=== PATIENT | female | born 1990 | race Caucasian/White ===

== ENCOUNTER 2017-02-12 18:22 | Emergency (ER) | payer OTHER ==
[~2017-02-12] VITALS: Ht 152.4 cm; Wt 79.7 kg
[~2017-02-12 18:22] MED LIST: NOHOMEMEDS
[2017-02-12 18:39] VITALS: BP 132/82
[2017-02-12 19:13] LABS: ADD MIUA? YES; BILIRUBIN NEGATIVE; BLOOD NEGATIVE; COLOR YELLOW ((YELLOW)); GLUCOSE (STRIP) NEGATIVE; KETONES NEGATIVE; LEUKOCYTES SMALL; NITRITE POSITIVE; PROTEIN (STRIP) 30; SPECIFIC GRAVITY 1.021 (1.000-1.030); UROBILINOGEN 0.2 MG/DL (0.2-1.0)
[2017-02-12 19:17] LABS: HEMATOCRIT 37.8 % (36.0-46.0); MCHC 34.1 G/DL (30.0-36.0); MCV 84.9 FL (83-99); MEAN PLAT.VOLUME 10.4 uM^3 (9.5-12.4); PLATELET COUNT 312 K/uL (156-360); RBC DIS.WIDTH-CV 13.5 % (11.8-14.6); RED BLOOD COUNT 4.45 M/uL (3.80-5.20); WHITE BLOOD COUNT 13.8 K/uL (4.1-10.2)
[2017-02-12 19:33] LABS: CHLORIDE 102 mEq/L (99-109); POTASSIUM 3.3 mEq/L (3.7-5.4); SODIUM 140 mEq/L (136-147)
[2017-02-12 19:35] LABS: GLUCOSE 92 mg/dL (70-99)
[2017-02-12 19:36] LABS: ANION GAP 14 MEQ/L (2-14)
[2017-02-12 19:37] LABS: TOTAL BILIRUBIN 0.3 mg/dL (0.0-1.0)
[2017-02-12 19:39] LABS: ALKALINE PHOSPHATASE 100 IU/L (3-129); GFR ESTIMATE (CALCULATED) > 59 mL/min/
[2017-02-12 19:40] LABS: UREA NITROGEN (BUN) 11 mg/dL (9-23)
[2017-02-12 19:42] LABS: LIPASE 26 U/L (1.0-51.0)
[2017-02-12 19:50] LABS: QUANTITATIVE HCG < 4.0 MIU/ML
[2017-02-12 20:14] LABS: BACTERIA 3+ /HPF; CASTS NONE SEEN /LPF; CRYSTALS NONE SEEN; EPITHELIAL CELLS 2+ /HPF; MUCUS TRACE /LPF; RED BLOOD CELLS 0-5 /HPF (0-5); UCUL ADDED? YES
[2017-02-13] MEDS ORDERED: METHADOSE10 MG/1 ML PO (14:25)
== END 2017-02-12 20:21 | disposition left against medical advice (07) ==
LOC: EME 18:22
DX: R10.10 Upper abdominal pain, unspecified (principal); R11.2 Nausea with vomiting, unspecified; Z53.21 Procedure and treatment not carried out due to patient leaving prior to being seen by health care provider
CPT/HCPCS: 80053; 81003; 83690; 84702; 85027; 87077; 87086; 87186

== ENCOUNTER 2017-02-13 08:46 | Inpatient (IN) | payer OTHER ==
[~2017-02-13] VITALS: Ht 152.4 cm; Wt 78.0 kg
[2017-02-13 09:23] LABS: EOSINOPHIL COUNT 0.2 K/uL (0-0.3); HEMATOCRIT 37.8 % (36.0-46.0); IMMATURE GRANULOCYTE (%) 0.4 % (0.0-0.7); INSTRUMENT ABS NEUTROPHIL CT 5.2 K/uL; LYMPHOCYTE COUNT 1.9 K/uL (1.0-2.8); MCH 28.6 PG (29.0-34.0); MCHC 33.9 G/DL (30.0-36.0); MCV 84.6 FL (83-99); MEAN PLAT.VOLUME 10.2 uM^3 (9.5-12.4); MONOCYTE (%) 8.2 % (3-12); MONOCYTE COUNT 0.7 K/uL (0-0.8); NEUTROPHIL COUNT 5.2 K/uL (1.8-6.4); PLATELET COUNT 288 K/uL (156-360); RBC DIS.WIDTH-CV 13.7 % (11.8-14.6); RBC DIS.WIDTH-SD 42.3 % (39-53); RED BLOOD COUNT 4.47 M/uL (3.80-5.20)
[2017-02-13 09:31] LABS: CHLORIDE 105 mEq/L (99-109); POTASSIUM 3.6 mEq/L (3.7-5.4); SODIUM 138 mEq/L (136-147)
[2017-02-13 09:33] LABS: GLUCOSE 86 mg/dL (70-99)
[2017-02-13 09:34] LABS: ANION GAP 11 MEQ/L (2-14)
[2017-02-13 09:37] LABS: GFR ESTIMATE (CALCULATED) > 59 mL/min/
[2017-02-13 09:38] LABS: UREA NITROGEN (BUN) 9 mg/dL (9-23)
[2017-02-13 09:40] LABS: ALKALINE PHOSPHATASE 222 IU/L (3-129); LIPASE 18 U/L (1.0-51.0); TOTAL BILIRUBIN 2.4 mg/dL (0.0-1.0)
[2017-02-13 09:46] LABS: QUANTITATIVE HCG < 4.0 MIU/ML
[2017-02-13 09:55] LABS: ADD MIUA? YES; BILIRUBIN NEGATIVE; BLOOD NEGATIVE; COLOR AMBER ((YELLOW)); GLUCOSE (STRIP) NEGATIVE; KETONES NEGATIVE; LEUKOCYTES TRACE; NITRITE POSITIVE; PROTEIN (STRIP) NEGATIVE; SPECIFIC GRAVITY 1.015 (1.000-1.030)
[2017-02-13 10:06] LABS: BACTERIA 1+ /HPF; CALCIUM OXALATE CRYSTALS 1+ /HPF; EPITHELIAL CELLS 1+ /HPF; MUCUS TRACE /LPF; RED BLOOD CELLS 0-5 /HPF (0-5); UCUL ADDED? YES
[2017-02-13 13:38] LABS: DIRECT BILIRUBIN 1.7 mg/dL (0.0-0.3)
[2017-02-13] MEDS ORDERED: METHADOSE10 MG/1 ML PO (14:25)
[2017-02-13 17:29] LABS: INTER. NORMALIZED RATIO 1.2; PROTHROMBIN TIME 12.7 SEC (10.2-12.9)
[2017-02-13 17:32] LABS: PTT 28.5 SEC (25-37)
[2017-02-13 18:02] VITALS: BP 113/56
[2017-02-13 18:13] VITALS: BP 113/56
[2017-02-13 19:57] VITALS: BP 117/71
[2017-02-13 23:14] VITALS: BP 127/55
[2017-02-14 04:15] VITALS: BP 124/68
[2017-02-14 06:35] LABS: HEMATOCRIT 35.3 % (36.0-46.0); MCH 29.5 PG (29.0-34.0); MCHC 33.7 G/DL (30.0-36.0); MCV 87.6 FL (83-99); MEAN PLAT.VOLUME 10.6 uM^3 (9.5-12.4); PLATELET COUNT 264 K/uL (156-360); RBC DIS.WIDTH-CV 14.2 % (11.8-14.6); RBC DIS.WIDTH-SD 45.2 % (39-53); RED BLOOD COUNT 4.03 M/uL (3.80-5.20); WHITE BLOOD COUNT 7.6 K/uL (4.1-10.2)
[2017-02-14 07:00] LABS: ALKALINE PHOSPHATASE 173 IU/L (3-129); ANION GAP 8 MEQ/L (2-14); CHLORIDE 109 MEQ/L (99-109); GFR ESTIMATE (CALCULATED) > 59 mL/min/; GLUCOSE 75 mg/dL (70-99); MAGNESIUM 1.7 mg/dl (1.3-2.7); SAMPLE HEMOLYSIS CHECK 0; SAMPLE ICTERIC CHECK 0; SAMPLE LIPEMIA CHECK 0; SODIUM 144 MEQ/L (136-147); UREA NITROGEN (BUN) 10 mg/dL (9-23)
[2017-02-14 07:14] VITALS: BP 116/64
[2017-02-14 11:41] VITALS: BP 110/63
[2017-02-14 17:46] VITALS: BP 136/72
[2017-02-14 23:46] VITALS: BP 114/60
[2017-02-15 04:25] VITALS: BP 130/72
[2017-02-15 04:35] VITALS: BP 108/67
[2017-02-15 06:36] LABS: HEMATOCRIT 35.5 % (36.0-46.0); MCH 28.2 PG (29.0-34.0); MCHC 32.4 G/DL (30.0-36.0); MEAN PLAT.VOLUME 10.2 uM^3 (9.5-12.4); PLATELET COUNT 265 K/uL (156-360); RBC DIS.WIDTH-SD 44.5 % (39-53); RED BLOOD COUNT 4.08 M/uL (3.80-5.20); WHITE BLOOD COUNT 6.6 K/uL (4.1-10.2)
[2017-02-15 06:59] LABS: ALKALINE PHOSPHATASE 149 IU/L (3-129); ANION GAP 8 MEQ/L (2-14); CHLORIDE 109 MEQ/L (99-109); GFR ESTIMATE (CALCULATED) > 59 mL/min/; GLUCOSE 93 mg/dL (70-99); POTASSIUM 3.9 MEQ/L (3.7-5.4); SAMPLE HEMOLYSIS CHECK 0; SAMPLE ICTERIC CHECK 0; SAMPLE LIPEMIA CHECK 0; SODIUM 143 MEQ/L (136-147); UREA NITROGEN (BUN) 7 mg/dL (9-23)
[2017-02-15 07:01] LABS: TOTAL BILIRUBIN 2.1 MG/DL (0.0-1.0)
[2017-02-15 08:22] VITALS: BP 122/63
== END 2017-02-15 11:00 | disposition left against medical advice (07) | DRG 445 ==
LOC: EME 08:46 → EDOF 15:54 → ENRESERV 16:00 → CANRESERV 16:00 → ENRESERV 16:06 → 3EAST 17:31
PROVIDERS: Hospitalist; Physician Assistant; Surgery
DX: K80.70 Calculus of gallbladder and bile duct without cholecystitis without obstruction (principal); N39.0 Urinary tract infection, site not specified; B96.20 Unspecified Escherichia coli [E. coli] as the cause of diseases classified elsewhere; R74.0 Nonspecific elevation of levels of transaminase and lactic acid dehydrogenase [LDH]; R94.5 Abnormal results of liver function studies; F17.290 Nicotine dependence, other tobacco product, uncomplicated; E66.9 Obesity, unspecified; Z68.33 Body mass index [BMI] 33.0-33.9, adult; Z90.710 Acquired absence of both cervix and uterus; Z80.1 Family history of malignant neoplasm of trachea, bronchus and lung
CPT/HCPCS: 74020; 74181; 76705; 80053; 81003; 82248; 83690; 83735; 84702; 85025; 85027; 85610; 85730; 87077; 87086; 87186; 90686; 99281; 99285; G0378; J1650; J1885; J2543; J7030; J7050; J7120

== ENCOUNTER 2017-02-17 08:52 | Inpatient (IN) | payer OTHER ==
[~2017-02-17] VITALS: Ht 152.4 cm; Wt 76.4 kg
[~2017-02-17 08:52] MED LIST changes: +METHADOSE10 MG/1 ML PO
[2017-02-17 09:17] LABS: HEMATOCRIT 40.8 % (36.0-46.0); MCH 28.5 PG (29.0-34.0); MCHC 32.8 G/DL (30.0-36.0); MCV 86.8 FL (83-99); MEAN PLAT.VOLUME 10.1 uM^3 (9.5-12.4); PLATELET COUNT 327 K/uL (156-360); RBC DIS.WIDTH-CV 13.8 % (11.8-14.6); RBC DIS.WIDTH-SD 43.8 % (39-53); WHITE BLOOD COUNT 8.3 K/uL (4.1-10.2)
[2017-02-17 09:24] LABS: CHLORIDE 107 mEq/L (99-109); POTASSIUM 3.5 mEq/L (3.7-5.4); SODIUM 144 mEq/L (136-147)
[2017-02-17 09:26] LABS: GLUCOSE 127 mg/dL (70-99)
[2017-02-17 09:28] LABS: ANION GAP 9 MEQ/L (2-14); TOTAL BILIRUBIN 3.9 mg/dL (0.0-1.0)
[2017-02-17 09:30] LABS: ALKALINE PHOSPHATASE 190 IU/L (3-129); GFR ESTIMATE (CALCULATED) > 59 mL/min/
[2017-02-17 09:31] LABS: UREA NITROGEN (BUN) 7 mg/dL (9-23)
[2017-02-17 09:48] LABS: QUANTITATIVE HCG < 4.0 MIU/ML
[2017-02-17 10:09] LABS: LIPASE 67 U/L (1.0-51.0)
[2017-02-17 13:42] LABS: ADD MIUA? YES; BILIRUBIN NEGATIVE; BLOOD LARGE; COLOR AMBER ((YELLOW)); GLUCOSE (STRIP) NEGATIVE; KETONES NEGATIVE; LEUKOCYTES TRACE; NITRITE NEGATIVE; PROTEIN (STRIP) 100; SPECIFIC GRAVITY 1.011 (1.000-1.030)
[2017-02-17 13:50] VITALS: BP 121/95
[2017-02-17 14:03] LABS: BACTERIA RARE /HPF; CASTS NONE SEEN /LPF; CRYSTALS NONE SEEN; EPITHELIAL CELLS RARE /HPF; MUCUS NONE SEEN /LPF; RED BLOOD CELLS TNTC /HPF (0-5); UCUL ADDED? YES; WHITE BLOOD CELLS 0-5 /HPF (0-5)
[2017-02-17 19:58] VITALS: BP 115/64
[2017-02-17 22:59] VITALS: BP 110/62
[2017-02-18 05:58] LABS: MCH 29.3 PG (29.0-34.0); MCHC 33.1 G/DL (30.0-36.0); MCV 88.4 FL (83-99); MEAN PLAT.VOLUME 10.6 uM^3 (9.5-12.4); PLATELET COUNT 280 K/uL (156-360); RBC DIS.WIDTH-CV 14.2 % (11.8-14.6); RED BLOOD COUNT 3.96 M/uL (3.80-5.20); WHITE BLOOD COUNT 6.7 K/uL (4.1-10.2)
[2017-02-18 06:25] LABS: ALKALINE PHOSPHATASE 156 IU/L (3-129); ANION GAP 7 MEQ/L (2-14); CHLORIDE 107 MEQ/L (99-109); GFR ESTIMATE (CALCULATED) > 59 mL/min/; POTASSIUM 3.6 MEQ/L (3.7-5.4); SAMPLE HEMOLYSIS CHECK 0; SAMPLE ICTERIC CHECK 0; SAMPLE LIPEMIA CHECK 0; SODIUM 142 MEQ/L (136-147); UREA NITROGEN (BUN) 6 mg/dL (9-23)
[2017-02-18 06:26] LABS: GLUCOSE 95 mg/dL (70-99)
[2017-02-18 07:28] VITALS: BP 146/73
[2017-02-18 23:37] VITALS: BP 145/67
[2017-02-19 05:58] LABS: EOSINOPHIL (%) 0.1 % (0-5); HEMATOCRIT 35.9 % (36.0-46.0); IMMATURE GRANULOCYTE (%) 0.6 % (0.0-0.7); IMMATURE GRANULOCYTE COUNT 0.1 K/uL; INSTRUMENT ABS NEUTROPHIL CT 8.7 K/uL; LYMPHOCYTE COUNT 1.3 K/uL (1.0-2.8); MCH 29.7 PG (29.0-34.0); MCHC 33.7 G/DL (30.0-36.0); MCV 88.2 FL (83-99); MEAN PLAT.VOLUME 10.8 uM^3 (9.5-12.4); MONOCYTE (%) 4.8 % (3-12); MONOCYTE COUNT 0.5 K/uL (0-0.8); NEUTROPHIL (%) 82.1 % (45-76); NEUTROPHIL COUNT 8.7 K/uL (1.8-6.4); PLATELET COUNT 292 K/uL (156-360); RBC DIS.WIDTH-CV 13.9 % (11.8-14.6); RBC DIS.WIDTH-SD 44.9 % (39-53); RED BLOOD COUNT 4.07 M/uL (3.80-5.20); WHITE BLOOD COUNT 10.5 K/uL (4.1-10.2)
[2017-02-19 06:39] LABS: ALKALINE PHOSPHATASE 150 IU/L (3-129); ANION GAP 9 MEQ/L (2-14); CHLORIDE 107 MEQ/L (99-109); DIRECT BILIRUBIN 1.3 mg/dL (0.0-0.3); GFR ESTIMATE (CALCULATED) > 59 mL/min/; GLUCOSE 127 mg/dL (70-99); LIPASE 1489 U/L (1.0-51.0); SAMPLE HEMOLYSIS CHECK 0; SAMPLE ICTERIC CHECK 0; SAMPLE LIPEMIA CHECK 0; SODIUM 143 MEQ/L (136-147); TOTAL BILIRUBIN 2.4 MG/DL (0.0-1.0); UREA NITROGEN (BUN) 10 mg/dL (9-23)
[2017-02-19 06:42] LABS: AMYLASE 421 IU/L (1-118); POTASSIUM 4.5 MEQ/L (3.7-5.4)
[2017-02-19 07:40] VITALS: BP 122/76
[2017-02-19 15:47] VITALS: BP 104/63
[2017-02-20 00:39] VITALS: BP 139/63
[2017-02-20 06:59] LABS: BASOPHIL COUNT 0.1 K/uL (0-0.1); EOSINOPHIL (%) 1.7 % (0-5); EOSINOPHIL COUNT 0.2 K/uL (0-0.3); HEMATOCRIT 33.3 % (36.0-46.0); IMMATURE GRANULOCYTE (%) 0.2 % (0.0-0.7); INSTRUMENT ABS NEUTROPHIL CT 7.1 K/uL; LYMPHOCYTE COUNT 3.8 K/uL (1.0-2.8); MCH 29.5 PG (29.0-34.0); MCHC 32.4 G/DL (30.0-36.0); MEAN PLAT.VOLUME 11.2 uM^3 (9.5-12.4); MONOCYTE (%) 6.4 % (3-12); MONOCYTE COUNT 0.8 K/uL (0-0.8); NEUTROPHIL (%) 59.4 % (45-76); NEUTROPHIL COUNT 7.1 K/uL (1.8-6.4); PLATELET COUNT 280 K/uL (156-360); RBC DIS.WIDTH-CV 14.6 % (11.8-14.6); RBC DIS.WIDTH-SD 49.1 % (39-53); RED BLOOD COUNT 3.66 M/uL (3.80-5.20); WHITE BLOOD COUNT 11.9 K/uL (4.1-10.2)
[2017-02-20 07:29] LABS: ALKALINE PHOSPHATASE 131 IU/L (3-129); ANION GAP 8 MEQ/L (2-14); CHLORIDE 109 MEQ/L (99-109); GFR ESTIMATE (CALCULATED) > 59 mL/min/; GLUCOSE 101 mg/dL (70-99); POTASSIUM 3.9 MEQ/L (3.7-5.4); SAMPLE HEMOLYSIS CHECK 0; SAMPLE ICTERIC CHECK 0; SAMPLE LIPEMIA CHECK 0; SODIUM 147 MEQ/L (136-147); UREA NITROGEN (BUN) 7 mg/dL (9-23)
[2017-02-20 07:30] LABS: TOTAL BILIRUBIN 1.6 MG/DL (0.0-1.0)
[2017-02-20 08:13] LABS: LIPASE 262 U/L (1.0-51.0)
[2017-02-20 10:47] VITALS: BP 116/60
[2017-02-20 15:28] VITALS: BP 134/73
[2017-02-21 00:05] VITALS: BP 122/65
[2017-02-21 06:14] LABS: EOSINOPHIL (%) 3.7 % (0-5); EOSINOPHIL COUNT 0.4 K/uL (0-0.3); HEMATOCRIT 33.8 % (36.0-46.0); IMMATURE GRANULOCYTE (%) 0.2 % (0.0-0.7); INSTRUMENT ABS NEUTROPHIL CT 4.6 K/uL; LYMPHOCYTE COUNT 3.8 K/uL (1.0-2.8); MCH 29.4 PG (29.0-34.0); MCHC 32.8 G/DL (30.0-36.0); MCV 89.7 FL (83-99); MONOCYTE (%) 7.7 % (3-12); MONOCYTE COUNT 0.7 K/uL (0-0.8); NEUTROPHIL (%) 48.3 % (45-76); NEUTROPHIL COUNT 4.6 K/uL (1.8-6.4); PLATELET COUNT 275 K/uL (156-360); RBC DIS.WIDTH-CV 14.3 % (11.8-14.6); RBC DIS.WIDTH-SD 46.9 % (39-53); RED BLOOD COUNT 3.77 M/uL (3.80-5.20); WHITE BLOOD COUNT 9.5 K/uL (4.1-10.2)
[2017-02-21 06:38] LABS: ANION GAP 8 MEQ/L (2-14); CHLORIDE 107 MEQ/L (99-109); GFR ESTIMATE (CALCULATED) > 59 mL/min/; GLUCOSE 96 mg/dL (70-99); LIPASE 80 U/L (1.0-51.0); POTASSIUM 3.8 MEQ/L (3.7-5.4); SAMPLE HEMOLYSIS CHECK 0; SAMPLE ICTERIC CHECK 0; SAMPLE LIPEMIA CHECK 0; SODIUM 146 MEQ/L (136-147); TOTAL BILIRUBIN 1.4 MG/DL (0.0-1.0); UREA NITROGEN (BUN) 5 mg/dL (9-23)
[2017-02-21 06:54] LABS: ALKALINE PHOSPHATASE 178 IU/L (3-129)
[2017-02-21 07:29] VITALS: BP 123/69
[2017-02-21] MEDS ORDERED: ENDOCET 5-3251 EACH PO (10:40)
[2017-02-21] MEDS ORDERED: SENOKOT S,PE1 TABLET PO (14:54)
[2017-02-21 16:00] VITALS: BP 121/72
[2017-02-21 22:42] VITALS: BP 110/56
[2017-02-22 07:19] VITALS: BP 123/60
== END 2017-02-22 09:38 | disposition home or self-care (01) | DRG 417 ==
LOC: EME 08:52 → EDOF 11:33 → 5EAST 11:33 → ENRESERV 11:39 → 5EAST 13:46
PROVIDERS: Internal Medicine; Physician Assistant Surgical; Student in an Organized Health Care Education/Training Program; Surgery
PROC: 0FC98ZZ Extirpation of Matter from Common Bile Duct, Via Natural or Artificial Opening Endoscopic (ICD-10-PCS; principal; 2017-02-18)
PROC: 0FT44ZZ Resection of Gallbladder, Percutaneous Endoscopic Approach (ICD-10-PCS; 2017-02-21)
DX: K80.45 Calculus of bile duct with chronic cholecystitis with obstruction (principal); K85.90 Acute pancreatitis without necrosis or infection, unspecified; F11.20 Opioid dependence, uncomplicated; K82.8 Other specified diseases of gallbladder; F17.290 Nicotine dependence, other tobacco product, uncomplicated; E66.9 Obesity, unspecified; Z68.32 Body mass index [BMI] 32.0-32.9, adult
CPT/HCPCS: 74330; 80053; 81003; 82150; 82248; 83690; 84702; 85025; 85027; 87081; 87086; 88304; 99281; 99285; C1757; C1769; J0131; J0295; J0330; J0690; J1100; J1170; J1885; J2270; J2405; J2710; J2765; J3010; J7050; S0028